=== PATIENT | male | born 1950 | race Caucasian/White ===

== ENCOUNTER 2024-12-29 08:51 | Emergency (ER) | payer MEDICARE, SELFPAY ==
[2024-12-29 09:05] VITALS: BP 125/78; PULSE 50; RESP 16; TEMP 36.4; O2SAT 100
--- NOTE | 2024-12-29 09:24 | ED_ITS ---
HPI - Skin/Abscess/Foreign Bdy General Chief complaint: Skin/Abscess/Foreign Body Stated complaint: WASP STING Time Seen by Provider: 12/29/24 09:15 Source: patient and RN notes reviewed Mode of arrival: ambulatory Limitations: no limitations History of Present Illness HPI narrative: 74-year-old male presents [facility] Care complaining of washed down near his right eye. Patient said yesterday morning he was outside when wasp stung him twice around his right eye. Patient denies any injury to the eye. Patient reports the swelling was mild yesterday he apply Benadryl cream and will compresses in today woke up with worsening swelling around his right eye. Patient says he is able to see without any issues. Patient denies any pain or pruritus. Patient denies any difficulty breathing, wheezing, throat swelling, nausea, vomiting, or any other symptoms. Patient has a cardiac history. Related Data Home Medications ?Medication ?Instructions ?Recorded ?Confirmed ?Last Taken ?Type amlodipine 5 mg tablet mg 12/29/24 Unknown History apixaban 5 mg tablet (Eliquis) mg 12/29/24 Unknown Hi story atenolol 100 mg tablet mg 12/29/24 Unknown History atorvastatin 10 mg tablet mg 12/29/24 Unknown History finasteride 5 mg tablet mg 12/29/24 Unknown History losartan 100 tablet 12/29/24 Unknown His tory mg-hydrochlorothiazide 12.5 mg tablet tamsulosin 0.4 mg capsule mg PO 12/29/24 Unknown Hist ory Allergies Allergy/AdvReac Type Severity Reaction Status Date / Time No Known Allergies Allergy Verified 12/29/24 09:10 Review of Systems Review of Systems: CONSTITUTIONAL: Denies fever, chills, or sweats. EYES: Denies visual changes, redness, or discharge. ENT: Denies rhinorrhea, congestion, sore throat, or otalgia. CARDIOVASCULAR: Denies chest pain, palpitations, or edema. RESPIRATORY: Denies cough or dyspnea. GASTROINTESTINAL: Denies abdominal pain, nausea, vomiting, or diarrhea. GENITOURINARY: Denies dysuria or hematuria. SKIN: Denies rash or itching. Positive for swelling. MUSCULOSKELETAL: Denies back pain, joint pain, or myalgia. NEUROLOGIC: Denies headache, numbness, or weakness. PSYCHIATRIC: Denies anxiety or depression. All other systems reviewed are negative, except as documented in HPI. PMFSH Comments At the time of my signature, I reviewed and agree with the nursing past medical, surgical, social, and family history. There is no relevant family history pertinent to the patient complaint. Exam Narrative: GENERAL: This is a well-nourished, well-developed adult, in no apparent distress. They are non ill-appearing, nontoxic appearing. HEAD: normocephalic, atraumatic. EYES: Sclera clear/white. Conjunctiva normal. Vision is grossly intact. Extraocular movements intact. Pupils PERRLA. Bilateral upper and lower eyelids are normal. Right lower periorbital space edematous extending into the right maxillary region. Is nontender to palpate and vesicular. No exudate no induration, no area of fluctuance. EARS: External ears normal, auditory canals clear and without drainage, TMs normal without perforation. Hearing grossly intact. NOSE: External nose normal with no obvious nasal discharge, nasal turbinates without redness, no rhinorrhea. THROAT: Mucous membranes moist, posterior pharynx clear, without erythema or swelling. Uvula midline. NECK: Neck supple, non-tender without lymphadenopathy, masses or thyromegaly. CARDIOVASCULAR: Regular rate and rhythm without murmurs, gallops, or rubs. RESPIRATORY: Clear to auscultation. Breath sounds equal bilaterally. No wheezes, rales, or rhonchi. SKIN: warm, Dry, intact with no suspicious lesions or rash, good texture and t urgor. NEURO: awake, alert, and oriented to person, place and time. There were no obvious focal neurologic abnormalities. EXTREMITIES: No joint tenderness, effusion, or edema noted. Course Course Emergency Course: Portions of this record may have been created with voice recognition software Level of Care: Express Care Visit Vital Signs Vital signs: Vital Signs Temperature 97.5 F L 12/29/24 09:05 Pulse Rate 50 L 12/29/24 09:05 Respiratory Rate 16 12/29/24 09:05 Blood Pressure 125/78 12/29/24 09:05 Pulse Oximetry 100 12/29/24 09:05 Temperature 97.5 F L 12/29/24 09:05 Pulse Rate 50 L 12/29/24 09:05 Respiratory Rate 16 12/29/24 09:05 Blood Pressure 125/78 12/29/24 09:05 Pulse Oximetry 100 12/29/24 09:05 Reviewed MDM - Skin/Abscess/Foreign Bdy MDM Narrative Medical decision making narrative: Patient likely has a local allergic reaction to the wash sting. No evidence of anaphylaxis. Patient hemodynamically stable. Patient and not respiratory distress. Patient is in no apparent distress. No vision problems. Vision grossly intact. Prescription for prednisone sent to pharmacy. Advised patient also take a 10 mg Zyrtec daily for the next week along with 20 mg Pepcid daily for next week. Discussed strict ER precautions and to call 911 if patient develop worsening redness, swelling, pain, fevers, swelling to the throat, difficulty breathing, difficulty clearing secretions, nausea, vomiting, wheezing, or any serious concerns. Discussed physical exam findings. Advised supportive measures and signs/symptoms to go to the ER. Pt is appropriate for outpt treatment and f/u. Differential Diagnosis Differential diagnosis: Likely other (Inset sting allergic reaction, anaphylaxis, cellulitis) Critical Care Time Critical Care Time Critical Care Time: No Discharge Plan Discharge Clinical Impression: Allergic reaction to wasp sting Patient Disposition: Home Condition: Stable Instructions: Insect Bite or Sting (ED) Additional Instructions: Apply cold compresses to the affected area 10-15 minutes, a few times a day to help with swelling. Take the prednisone as directed. Take with food. Take 10 mg of Zyrtec by mouth daily for the next week. Take 20 mg of Pepcid by mouth daily for the next week. You may use Benadryl as needed at night for itchiness or allergy symptoms, Benadryl my make you drowsy is to do not drive or operate machinery while taking that medication. May also apply calamine lotion or Benadryl cream as needed for itchiness. Follow-up with PCP in 3-5 days. If you develops worsening swelling, pain, fevers, difficulty breathing, throat swelling, difficulty clearing her secretions, nausea, vomiting, or any serious concerns please go to call 911 and go to the ER immediately. Patient Language: Greenlandic Prescriptions: New prednisone 20 mg tablet 40 mg PO DAILY 5 Days Qty: 10 0RF No Action atorvastatin 10 mg tablet atenolol 100 mg tablet amlodipine 5 mg tablet tamsulosin 0.4 mg capsule PO finasteride 5 mg tablet losartan-hydrochlorothiazide 100-12.5 mg tablet Eliquis 5 mg tablet Follow-up/Referrals: Jesus,Aleks Dickens MD [Primary Care Provider] Time of Disposition: 09:22
== END 2024-12-29 09:29 | disposition home or self-care (01) ==
PROVIDERS: PCP Internal Medicine
DX: T63.461A Toxic effect of venom of wasps, accidental (unintentional), initial encounter (principal); Z79.01 Long term (current) use of anticoagulants
CPT/HCPCS: 99203; G0463